=== PATIENT | female | born 1960 | race Two or more races ===

== ENCOUNTER 2017-03-20 15:41 | Emergency (ER) | payer MEDICAID ==
[~2017-03-20] VITALS: Ht 157.5 cm; Wt 118.8 kg
[2017-03-20 16:01] VITALS: BP 172/85
[2017-03-20] MEDS ORDERED: HYDROcodone-ACET 10/325MG TAB PO ONE (16:30)
[2017-03-20] MEDS ORDERED: KETOROLAC TROMETH 60MG/2ML VIAL IM ONE (16:30)
== END 2017-03-20 18:10 | disposition home or self-care (01) ==
LOC: ER 15:45
DX: M79.604 Pain in right leg (principal); M54.31 Sciatica, right side; I10 Essential (primary) hypertension; E11.9 Type 2 diabetes mellitus without complications; E78.5 Hyperlipidemia, unspecified; Z98.51 Tubal ligation status
CPT/HCPCS: 93971; 96372; 99284; J1885

== ENCOUNTER 2017-04-07 16:13 | Emergency (ER) | payer MEDICAID ==
[~2017-04-07] VITALS: Ht 157.5 cm; Wt 117.9 kg
[2017-04-07 19:20] VITALS: BP 106/88
[2017-04-07] MEDS ORDERED: IBUPROFEN 800 MG TAB PO ONE (22:30)
== END 2017-04-07 23:16 | disposition home or self-care (01) ==
LOC: ER 16:19
DX: M47.897 Other spondylosis, lumbosacral region (principal); I10 Essential (primary) hypertension; E11.9 Type 2 diabetes mellitus without complications; E78.5 Hyperlipidemia, unspecified; V43.62XA Car passenger injured in collision with other type car in traffic accident, initial encounter; Y93.89 Activity, other specified; Y99.8 Other external cause status; Y92.488 Other paved roadways as the place of occurrence of the external cause
CPT/HCPCS: 70450; 72100

== ENCOUNTER 2023-04-26 19:03 | Emergency (ER) | payer MEDICARE, MEDICAID ==
[~2023-04-26] VITALS: Ht 154.9 cm; Wt 64.0 kg
[2023-04-27 01:05] VITALS: BP 119/65; PULSE 68; RESP 18; TEMP 98; O2SAT 96
== END 2023-04-27 01:05 | disposition home or self-care (01) ==
LOC: ER 19:03
DX: S00.33XA Contusion of nose, initial encounter (principal); S00.531A Contusion of lip, initial encounter; W01.0XXA Fall on same level from slipping, tripping and stumbling without subsequent striking against object, initial encounter; Y93.89 Activity, other specified; Y92.89 Other specified places as the place of occurrence of the external cause; Y99.8 Other external cause status
CPT/HCPCS: 70450; 70486; 72125